=== PATIENT | male | born 1965 | race Caucasian/White ===

== ENCOUNTER 2020-01-21 09:59 | Emergency (ER) | payer OTHER, SELFPAY ==
[2020-01-21 10:00] VITALS: BP 131/90; PULSE 63; RESP 16; TEMP 36.9; O2SAT 99; BMI 31.7
[2020-01-21 10:06] VITALS: BP 131/90; PULSE 63; RESP 16; TEMP 36.9; O2SAT 99
--- NOTE | 2020-01-21 10:08 | EKG12_ITS ---
Test Reason : SYNCOPE Blood Pressure : / mmHG Vent. Rate : 055 BPM Atrial Rate : 055 BPM P-R Int : 162 ms QRS Dur : 108 ms QT Int : 384 ms P-R-T Axes : 035 035 035 degrees QTc Int : 367 ms Sinus bradycardia Otherwise normal ECG Confirmed by TAMMY SNYDER, KRISTINA ([id number]), tape editor MACY STOUT ([id number]) on 02/02/2020 8:09:31 AM Referred By: CARLEY Confirmed By:KRISTINA MUNOZ MD
--- NOTE | 2020-01-21 10:16 | NURSING ---
NO OLD EKGS
--- NOTE | 2020-01-21 10:18 | EKG12_ITS ---
Test Reason : SYNCOPE Blood Pressure : / mmHG Vent. Rate : 055 BPM Atrial Rate : 055 BPM P-R Int : 162 ms QRS Dur : 108 ms QT Int : 384 ms P-R-T Axes : 035 035 035 degrees QTc Int : 367 ms Sinus bradycardia Otherwise normal ECG Confirmed by TAMMY SNYDER, NISHANT ([id number]), medical editor YUAN BOGGS ([id number]) on 01/25/2020 8:20:57 AM Referred By: CARLEY Confirmed By:FRED MUNOZ MD
--- NOTE | 2020-01-21 10:21 | RAD_ITS ---
STUDY: X-RAY CHEST REASON FOR EXAM: Male, 54 years old. SYNCOPE TECHNIQUE: AP COMPARISON: None. FINDINGS: The lungs are clear and expanded. There is no demonstrated pleural abnormality. Normal size heart. Normal mediastinum and ronnell. Normal visualized pulmonary arteries. Normal visualized aortic arch and descending thoracic aorta. Normal visualized thoracic spine. Normal visualized ribs, clavicles, and shoulders. There is no demonstrated abnormality of the visualized soft tissue structures of the upper abdomen. RAD/Chest 1 View (Portable) IMPRESSION: Nonacute portable x-ray examination of the chest. Electronically Signed: Rodolfo Austin MD ([place]) at 12:11 EDT , Service support ,
--- NOTE | 2020-01-21 10:22 | ED.DCSUM_ITS ---
History of Present Illness Informant: Patient, Family, [employer] Onset: Today Context: Sudden Onset Timing: Lasts - 5-7 seconds Quality: lightheaded Location: head Current Severity: Mild Maximum Severity: Severe Worsened by: nothing Relieved by: nothing Associated Symptoms: myalgias, malaise, chills Narrative: 54-year-old male who denies any significant past medical history presents to the emergency department complaining of syncope. Patient was in [employer]. He states that he has not felt well this morning. He has felt achy all over and kind of lightheaded and has had chills. He was standing in [employer] and had a syncopal episode and hit his face on the pew in front of him and has 2 chipped teeth. His states he was unconscious for approximately 5 to 7 seconds. There was no seizure-like activity. Patient on arrival by squad has no complaints. He has not had chest pain or shortness of breath. He denies any current lightheadedness or dizziness. Denies nausea vomiting or diarrhea. Denies symptoms of bleeding. He states last week he had a bit of a headache and a cough and a subjective fever but did not take his temperature but those symptoms resolved about 3 days ago. He did wake up not feeling well this morning however. Denies any sick contacts or contacts with anyone with COVID that he knows of. He has never had a syncopal episode in the past. Rest of his review of systems at this time are negative Prior similar symptoms: No Recent Illness/Hospitalization: No <Drake Anderson - Last Filed: 01/21/20 12:28> <Breezy Hill - Last Filed: 01/21/20 14:59> Chief Complaint: Syncope Past Medical History Prior records reviewed: Yes Past Medical History: None Surgical History: herniorrhaphy Lives: With Family Smoking Status: Former smoker Alcohol: None Drugs: None <Drake Anderson - Last Filed: 01/21/20 12:28> <Breezy Hill - Last Filed: 01/21/20 14:59> - Allergies and Home Meds Allergies/Adverse Reactions: Allergies No Known Allergies Allergy (Verified 01/21/20 10:05) Review of Systems All systems negative except as indicated General: Reports: Chills, Malaise. Denies: Fever, Sweats Eyes: Denies: Visual changes - bilaterally, Diplopia ENT: Denies: Rhinorrhea, Sore throat Cardiovascular: Denies: Chest pain, Palpitations, Heart racing Respiratory: Denies: Dyspnea, Cough, Sputum, Dyspnea on exertion, Orthopnea, Paroxysmal nocturnal dyspnea Gastrointestinal: Denies: Abdominal pain, Nausea, Vomiting, Diarrhea, Constipation, Melena, Hematochezia Genitourinary: Denies: Dysuria, Hematuria, Frequency Musculoskeletal: Denies: Myalgias, Arthralgias, Neck pain, Back pain, Swelling, Extremity Pain Skin: Denies: Rash, Abscess, Abrasions, Wounds Neurological: Denies: Headache, Weakness, Numbness <Drake Anderson - Last Filed: 01/21/20 12:28> Physical Exam Vital Signs/Narrative: Vital Signs Temp Pulse Resp BP Pulse Ox 01/21/20 10:06 98.5 F 63 16 131/90 H 99 01/21/20 10:00 98.5 F 63 16 131/90 H 99 Inital Vital Signs reviewed: Yes General: Well nourished, Well developed, No Acute Distress Head: Normocephalic, Atraumatic Eyes: Perrl, EOMI ENT: Moist mucous membranes, No rhinorrhea Neck: Supple, Nontender Cardiovascular: Regular rate, Regular rhythm, No murmurs Respiratory: No distress, CTA bilaterally, Chest nontender Abdomen: Soft, Nontender, Nondistended, Normal bowel sounds Back: Nontender, Normal Inspection Extremities: Nontender, No edema Skin: Normal color, No rash Neurological: Alert, Oriented x3, Cranial nerves II-XII grossly intact, Normal Strength, Normal Sensation, Normal Gait Psychological: Normal affect, Normal Mood <Drake Anderson - Last Filed: 01/21/20 12:28> Vital Signs/Narrative: Vital Signs Pulse Resp BP Pulse Ox 01/21/20 12:48 57 L 17 128/86 H 98 <Breezy Hill - Last Filed: 01/21/20 14:59> Diagnostic/Tx/Re-eval Chest X-Ray - ED: 1 View, Read by ED Physician, Read by Radiologist, No Acute Disease - Rhythm Strip Rhythm Strip: Sinus Rhythm Rate: 60 Ectopy: None - EKG Initial EKG Interpretation: Sinus Rhythm, No Acute Injury Pattern Prior: No Prior - Medical Decision Making On arrival patient has normal stable vital signs. EKG was sinus rhythm no signs of ischemia no ST segment or T wave changes normal intervals and no ectopy. There is no previous EKG available for comparison. Orthostatic vital signs were negative. Patient was given a liter of IV fluid. CBC BMP unremarkable and his troponin is negative. Urinalysis unremarkable. Chest x-ray unremarkable. Repeat exam patient feels improved. He is ambulatory. At this time we do not feel he requires admission. He will be discharged with referral to his primary for follow-up. Patient has 2 loose front teeth but they have not completely fallen out. He was advised to follow-up closely with his dentist and to avoid biting into hard foods such as apples and corn on the cob. <Drake Anderson PA - Last Filed: 01/21/20 12:28> - Medical Decision Making Patient was seen with me. I did a [id number] examination with the patient. Patient presents with syncopal episode that occurred today. Patient states he was standing when he felt weak and fell forward. Patient hit his face on the pew in front of him. Family reports that the patient was unconscious for a few seconds to a minute. Patient denies any palpitations. Patient denies any history of congestive heart failure or coronary artery disease. Patient denies any recent travel or recent surgery. Vital signs are stable. Patient is afebrile. Patient is in no acute distress. Oral mucosa is pink and moist. Neck is supple. Trachea is midline. There is no JVD noted. Heart was regular rate and rhythm. Lungs are clear and equal bilaterally. Abdomen is soft. Bowel sounds are normal. There is no tenderness. There is no rebound or guarding noted. Skin is warm dry. Cranial nerves II through XII are intact. There are no focal motor or sensory deficits noted. Extremities are intact. There is no calf tenderness or edema. EKG showed normal sinus rhythm. There is no acute ST or T wave changes. Orthostatic vital signs were obtained and were normal. CBC, basic metabolic profile, and troponin were normal. Urinalysis does not show any evidence of urinary tract infection. Chest x-ray does not show any acute cardiopulmonary process. This was interpreted by myself and the radiologist. Patient was feeling better on reevaluation. Patient was advised that he is low risk for syncope. Patient will be able to be discharged home. Patient was instructed to follow-up with his primary care physician in 5 to 7 days. Patient understood and was agreeable with the plan. All questions were answered. <Breezy Hill - Last Filed: 01/21/20 14:59> ED Disposition <Drake Anderson - Last Filed: 01/21/20 12:28> <Breezy Hill - Last Filed: 01/21/20 14:59> - Plan for ED Patient: Disposition: Home or Assisted Living Diagnosis: Syncope Instructions: ED Fainting Uncertain Cause Additional Instructions: Please follow-up with your 's primary care provider as soon as possible
[2020-01-21] MEDS: 0.9% Normal Saline 1,000 ML 1000 ML IV (10:26)
[2020-01-21 10:27] LABS: Absolute Neutrophil Count 3.2 X10^3/uL (2.0-7.7); Basophil# 0.02 X10^3/uL; Basophil% 0.5 % (0-1); Eosinophil# 0.08 X10^3/uL; Eosinophils% 1.8 % (0-5); Hematocrit 40.8 % (40-54); Hemoglobin 13.7 g/dL (13.0-16.5); Lymphocyte % 18.3 % (19-41); Mean Corp Hgb Conc 33.6 g/dL (32-36); Mean Corpuscular Hgb 31.4 pg (27.0-32.0); Mean Corpuscular Volume 93.4 fL (80-94); Mean Platelet Vol. 9.1 fl (6.2-12.0); Monocyte# 0.31 X10^3/uL; Monocyte% 7.1 % (0-10); NRBC Flagged by Analyzer 0 % (0-5); Neutrophil # 3.15 X10^3/uL (2.7-7.7); Neutrophil % 72.1 % (47-70); Platelet Count 149 K/mm3 (150-450); RBC Distribution Width CV 12.8 % (11.6-14.6); RBC Distribution Width SD 44.5 fl (35.1-43.9); Red Blood Count 4.37 M/mm3 (4.6-6.2); White Blood Count 4.4 K/mm3 (4.4-11.0)
[2020-01-21 10:34] VITALS: BP 115/79; BP 122/97; BP 131/89; PULSE 58; PULSE 70; PULSE 76
[2020-01-21 10:39] LABS: ALB/GLOB Ratio 1.1 RATIO (0.9-2.4); AST(SGOT) 21 U/L (15-37); Alanine Aminotransfer ALT/SGPT 33 U/L (16-61); Albumin, Serum 3.9 g/dL (3.2-5.0); Alkaline Phosphatase 56 U/L (45-117); Anion Gap 4 (5-15); BUN 13 mg/dL (7-18); BUN/Creat Ratio 10.3 RATIO (10-20); Calcium,Total 8.7 mg/dL (8.5-10.1); Chloride 106 mmol/L (98-107); Creatinine, Serum 1.26 mg/dL (0.70-1.30); EST Glomerular Filtration Rate 64 mL/min (>60); Est Glom Filt Rate - Afr Amer 77 mL/min (>60); Estimated Creatinine Clearance 68.58 ml/min; Globulin 3.4 g/dL (2.2-4.2); Glucose 94 mg/dL (74-106); Potassium 4.4 mmol/L (3.5-5.1); Protein, Total 7.3 g/dL (6.4-8.2); Sodium Level 139 mmol/L (136-145)
[2020-01-21 11:31] LABS: Red Blood Cells-Urine 0 SEEN /hpf (0-5)
[2020-01-21 11:35] LABS: Color, Urine Yellow (Yellow); Glucose, Dipstick Normal (Normal); Ketone-Dipstick 5 mg/dl (Negative); Leukocyte Esterase-Dipstick 25 /ul (Negative); Nitrite-Dipstick Negative (Negative); Occult Blood-Urine Negative /ul (Negative); Protein-Dipstick 15 mg/dl (Negative); Specific Gravity, Urine 1.015 (1.002-1.030); Urine Bilirubin Dipstick Negative (Negative); Urine Clarity Sl. Cloudy (Clear); Urine Urobilinogen Normal (Normal)
[2020-01-21 11:44] LABS: Bacteria RARE /hpf (None Seen); Hyaline Cast 0-5 SEEN /lpf (0-5); Mucous, Urine 1+ /hpf (<or=2+); Squamous Epithelial Cells - UA 0-5 SEEN /hpf (0-5); White Blood Cells 0-5 SEEN /hpf (0-5)
[2020-01-21 12:48] VITALS: BP 128/86; PULSE 57; RESP 17; RESP 18; O2SAT 97; O2SAT 98
== END 2020-01-21 12:54 | disposition home or self-care (01) ==
PROVIDERS: Emergency Provider Physician Assistant Medical
DX: R55 Syncope and collapse (principal); Z87.891 Personal history of nicotine dependence
CPT/HCPCS: 71045; 80053; 81001; 84484; 85025; 93005; 96360; 96361; 99285; A4216